=== PATIENT | male | born 1980 | race Caucasian/White ===

== ENCOUNTER → 2025-05-06 | Outpatient (CLI) | payer OTHER, SELFPAY ==
--- NOTE | 2025-05-06 09:15 | PROSBIL_PTH ---
PATIENT: THUAN REBOLLEDO LOC: [facility] U#:[id number] AGE/SX: 44/M ROOM: RE05/06/[address]: Dr. Bijan Chahal MD : 1980 BED: DIS: 05/06/2025 SPEC #: [id number] RECD: 05/06/25 15:20 STATUS: SHAKILA KASHMIR #: [id number] MILAD: 05/06/25 09:[address]: Bijan Chahal DEPT: SURGICAL PATHOLOGY RECD BY: Madhu Mckeon Tissues: A - PROSTATE RIGHT B - PROSTATE RIGHT C - PROSTATE RIGHT D - PROSTATE LEFT E - PROSTATE LEFT F - PROSTATE LEFT Procedures: PROSTATE BX HEADER OPERATION: Prostate biopsy PRE-OP DIAGNOSIS: Elevated PSA TISSUE SUBMITTED: A - Right apex, B - Right mid, C - Right base, D - Left apex, E - Left mid, F - Left base MICROSCOPIC DIAGNOSIS A. 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 Prostate, right, mid, biopsy: - Adenocarcinoma [place] 3+3=6, involving one of one core and <5% of the tissue. C. Prostate, right, base, biopsy: ` - Adenocarcinoma [place] 3+3=6, involving one of one core and <5% of the tissue. D. Prostate, left, apex, biopsy: - Benign prostate tissue. E. Prostate, left, mid, biopsy: - Adenocarcinoma [place] 3+3=6, involving two of two cores and <5% of the tissue F. Prostate, left, base, biopsy: - Adenocarcinoma [place] 3+3=6, involving two of two cores and 20% of the tissue MICROSCOPIC DESCRIPTION Slides are reviewed. GROSS DESCRIPTION Received in 6 formalin containers labeled with the patient's name and date of . Designated as: A. RA is a wang tissue core, 1.9 cm in length by <0.1 cm in diameter. Entirely submitted in 1 cassette. B. RM is a fragmented, wang tissue core, 1.9 cm in length by <0.1 cm in diameter. Entirely submitted in 1 cassette. C. RB is a fragmented, wang tissue core, 1.7 cm in length by <0.1 cm in diameter. Entirely submitted in 1 cassette. D. LA are 2 wang soft tissue cores, 0.9 cm and 1.1 cm in length by <0.1 cm in diameter. Entirely submitted in 1 cassette. E. LM are 2 wang tissue cores, 0.8 cm and 1.1 cm in length by <0.1 cm in diameter. Entirely submitted in 1 cassette. F. LB are 2 wang tissue cores, 0.9 cm and 1.4 cm in length by <0.1 cm in diameter. Entirely submitted in 1 cassette. PA 05/10/2025 CPT:[id number]
--- NOTE | 2025-05-06 09:15 | PROSBIL_PTH ---
PATIENT: THUAN REBOLLEDO LOC: [facility] U#:[id number] AGE/SX: 44/M ROOM: RE05/06/[address]: Dr. Bijan Chahal MD : 1980 BED: DIS: 05/06/2025 SPEC #: [id number] RECD: 05/06/25 15:20 STATUS: SHAKILA KASHMIR #: [id number] MILAD: 05/06/25 09:[address]: Bijan Chahal DEPT: SURGICAL PATHOLOGY RECD BY: Madhu Mckeon Tissues: A - PROSTATE RIGHT B - PROSTATE RIGHT C - PROSTATE RIGHT D - PROSTATE LEFT E - PROSTATE LEFT F - PROSTATE LEFT Procedures: PROSTATE BX HEADER OPERATION: Prostate biopsy PRE-OP DIAGNOSIS: Elevated PSA TISSUE SUBMITTED: A - Right apex, B - Right mid, C - Right base, D - Left apex, E - Left mid, F - Left base MICROSCOPIC DIAGNOSIS A. Prostate, right, apex, biopsy: - Adenocarcinoma [place] 3+3=6, involving one of one core and <5% of the tissue B. Prostate, right, mid, biopsy: - Adenocarcinoma [place] 3+3=6, involving one of one core and <5% of the tissue. C. Prostate, right, base, biopsy: ` - Adenocarcinoma [place] 3+3=6, involving one of one core and <5% of the tissue. D. Prostate, left, apex, biopsy: - Benign prostate tissue. E. Prostate, left, mid, biopsy: - Adenocarcinoma [place] 3+3=6, involving two of two cores and <5% of the tissue F. Prostate, left, base, biopsy: - Adenocarcinoma [place] 3+3=6, involving two of two cores and 20% of the tissue MICROSCOPIC DESCRIPTION Slides are reviewed. GROSS DESCRIPTION Received in 6 formalin containers labeled with the patient's name and date of . Designated as: A. RA is a wang tissue core, 1.9 cm in length by <0.1 cm in diameter. Entirely submitted in 1 cassette. B. RM is a fragmented, wang tissue core, 1.9 cm in length by <0.1 cm in diameter. Entirely submitted in 1 cassette. C. RB is a fragmented, wang tissue core, 1.7 cm in length by <0.1 cm in diameter. Entirely submitted in 1 cassette. D. LA are 2 wang soft tissue cores, 0.9 cm and 1.1 cm in length by <0.1 cm in diameter. Entirely submitted in 1 cassette. E. LM are 2 wang tissue cores, 0.8 cm and 1.1 cm in length by <0.1 cm in diameter. Entirely submitted in 1 cassette. F. LB are 2 wang tissue cores, 0.9 cm and 1.4 cm in length by <0.1 cm in diameter. Entirely submitted in 1 cassette. ID 05/10/2025 CPT:[id number]
== END | disposition home or self-care (01) ==
PROVIDERS: Referring Provider Urology; Visit Provider Urology
DX: R97.20 Elevated prostate specific antigen [PSA] (principal)
CPT/HCPCS: 88305; G0416